=== PATIENT | female | born 1995 | race Caucasian/White ===

== ENCOUNTER → 2019-10-16 12:06 | Outpatient (CLI) | payer OTHER, SELFPAY ==
[2019-10-10 09:29] VITALS: BMI 28.0
--- NOTE | 2019-10-16 12:09 | US_ITS ---
STUDY: ULTRASOUND OF THE FEMALE PELVIS - COMPLETE REASON FOR EXAM: Female, 23 years old. RT PELVIC PAIN X 2 MONTHS -- IUD CHECK LMP: 10/07/2019 TECHNIQUE: Transabdominal and Transvaginal TECHNICAL QUALITY: Adequate. COMPARISON: None. FINDINGS: The uterus is anteverted and is in a midline position. The uterus measures 6.4 x 4.8 x 3.4 cm. Normal uterine cervix. The endometrium measures 3 mm in thickness, and is hyperechoic. There is no demonstrated endometrial mass. There is no demonstrated myometrial mass. I.U.D. - The patient does have an I.U.D. IUD noted in satisfactory position The right ovary is visualized. The right ovary measures 3.8 x 2.5 x 3.1 cm. There is a simple 1.6 cm right ovarian cyst. There is normal arterial and normal venous vascularity. The left ovary is visualized. The left ovary measures 2.4 x 3.1 x 1.3 cm. There is no left ovarian cyst or ovarian mass. There is no visualized left adnexal mass or complex lesion. There is normal arterial and normal venous vascularity. There is no fluid in the cul-de-sac. The bladder is sonographically normal US/Pelvic (Non ) IMPRESSION: Sonographically normal uterus, IUD noted in satisfactory position Simple right ovarian cyst, no specific follow-up needed No suspicious adnexal mass or free fluid Electronically Signed: Tesfaye Harrison MD at 13:27 EDT , Service support ,
--- NOTE | 2019-10-16 12:09 | US_ITS ---
STUDY: ULTRASOUND OF THE FEMALE PELVIS - COMPLETE REASON FOR EXAM: Female, 23 years old. RT PELVIC PAIN X 2 MONTHS -- IUD CHECK LMP: 10/07/2019 TECHNIQUE: Transabdominal and Transvaginal TECHNICAL QUALITY: Adequate. COMPARISON: None. FINDINGS: The uterus is anteverted and is in a midline position. The uterus measures 6.4 x 4.8 x 3.4 cm. Normal uterine cervix. The endometrium measures 3 mm in thickness, and is hyperechoic. There is no demonstrated endometrial mass. There is no demonstrated myometrial mass. I.U.D. - The patient does have an I.U.D. IUD noted in satisfactory position The right ovary is visualized. The right ovary measures 3.8 x 2.5 x 3.1 cm. There is a simple 1.6 cm right ovarian cyst. There is normal arterial and normal venous vascularity. The left ovary is visualized. The left ovary measures 2.4 x 3.1 x 1.3 cm. There is no left ovarian cyst or ovarian mass. There is no visualized left adnexal mass or complex lesion. There is normal arterial and normal venous vascularity. There is no fluid in the cul-de-sac. The bladder is sonographically normal US/Transvaginal Non- IMPRESSION: Sonographically normal uterus, IUD noted in satisfactory position Simple right ovarian cyst, no specific follow-up needed No suspicious adnexal mass or free fluid Electronically Signed: Tesfaye Harrison MD at 13:27 EDT , Service support ,
== END ==
PROVIDERS: Referring Provider Nurse Practitioner Women's Health; Visit Provider Nurse Practitioner Women's Health
DX: R10.2 Pelvic and perineal pain (principal); Z30.431 Encounter for routine checking of intrauterine contraceptive device
CPT/HCPCS: 76830; 76856; 93976

== ENCOUNTER → 2020-03-12 11:01 | Outpatient (CLI) | payer OTHER, SELFPAY ==
[2020-03-12 10:32] VITALS: BMI 29.3
[2020-03-12 12:17] LABS: HIV - WCH Non-Reactive (Nonreactive)
[2020-03-12 15:40] LABS: Chlamydia Trachomatis by PCR Negative (Negative); Neisserai gonorrhoeae by PCR Negative (Negative); Probe Check PASS; Sample Adequacy Control PASS; Specimen Processing Control PASS
[2020-03-13 20:08] LABS: HCV Quant. RNA PCR HCV Not Detected IU/mL (.)
[2020-03-13 20:45] LABS: HSV 2 IgG < 0.91 index (0.00-0.90)
[2020-03-15 04:48] LABS: HPV Reflexed? NOT INDICATED
[2020-03-19 02:21] LABS: Rapid Plasmin Reagin (RPR) NONREACTIVE (NONREACTIVE)
== END ==
PROVIDERS: Referring Provider Nurse Practitioner Women's Health; Visit Provider Nurse Practitioner Women's Health
DX: Z11.3 Encounter for screening for infections with a predominantly sexual mode of transmission (principal); Z12.4 Encounter for screening for malignant neoplasm of cervix
CPT/HCPCS: 36415; 86592; 86695; 86696; 86703; 87491; 87522; 87591; 88175; G0145

== ENCOUNTER 2020-03-23 20:58 | Emergency (ER) | payer OTHER, SELFPAY ==
[2020-03-12 10:32] VITALS: BMI 29.3
[2020-03-23 20:59] VITALS: BP 141/94; PULSE 111; RESP 15; TEMP 36.1; O2SAT 100; BMI 29.0
--- NOTE | 2020-03-23 21:20 | ED.VIS.GEN ---
History of Present Illness Chief Complaint: Nausea/Vomiting/Diarrhea Informant: Patient Narrative: 24-year-old female states that she needs to be checked out for possible food poisoning from eating fish prior to arrival.. She states her significant other is here for the same thing. Actually he is here an allergic reaction. She tells me that she vomited in her mouth on the way here and then had some diarrhea when she got here. She denies any hives fevers or prior reactions to eating fish. Past Medical History - Allergies and Home Meds Allergies/Adverse Reactions: Allergies No Known Allergies Allergy (Unverified 03/23/20 21:00) Primary Care Physician: Care Physician,No Primary [Primary Care Provider] - Past Medical History: - - Chronic bronchitis Surgical History: noncontributory Smoking Status: Current every day smoker Drugs: None Review of Systems General: Denies: Chills, Fever, Sweats Eyes: Denies: Visual changes - bilaterally, Diplopia ENT: Denies: Rhinorrhea, Sore throat Cardiovascular: Denies: Chest pain, Palpitations Respiratory: Denies: Dyspnea, Cough, Dyspnea on exertion Gastrointestinal: Reports: Nausea, Vomiting, Diarrhea. Denies: Abdominal pain, Melena, Hematochezia Genitourinary: Denies: Dysuria, Hematuria, Frequency Musculoskeletal: Denies: Back pain, Extremity Pain Skin: Denies: Rash, Wounds Neurological: Denies: Headache, Weakness, Numbness Physical Exam Vital Signs/Narrative: Vital Signs Temp Pulse Resp BP Pulse Ox 03/23/20 20:59 97 F L 111 H 15 141/94 H 100 Inital Vital Signs reviewed: Yes General: Well nourished, Well developed, No Acute Distress Head: Normocephalic, Atraumatic Eyes: Perrl, EOMI ENT: Moist mucous membranes, No rhinorrhea Neck: Supple, Nontender Cardiovascular: Regular rate, Regular rhythm, No murmurs Respiratory: No distress, CTA bilaterally, Chest nontender Abdomen: Soft, Nontender, Nondistended, Normal bowel sounds Back: Nontender, Normal Inspection Extremities: Nontender, No edema Skin: Normal color, No rash Neurological: Alert, Oriented x3, Cranial nerves II-XII grossly intact, Normal Strength, Normal Sensation Psychological: Normal affect, Normal Mood Diagnostic/Tx/Re-eval - Medical Decision Making Patient does not appear dehydrated nor would expect her to be dehydrated after finishing dinner and having one episode of vomiting and diarrhea. I will write for Zofran and give her some Imodium. Follow-up as needed encourage fluid hydration. ED Disposition - Plan for ED Patient: Disposition: Home or Assisted Living Diagnosis: Nausea vomiting and diarrhea Instructions: ED Vomiting and Diarrhea ... Prescriptions: Ondansetron [Zofran Odt] 4 mg PO Q6H PRN PRN #10 tab PRN Reason: Nausea Prescription Printed
[2020-03-23] MEDS: Loperamide 2 MG Capsule 4 MG PO (22:07)
[2020-03-23] MEDS: Ondansetron ODT 4 MG Tablet PO (22:07)
[2020-03-23 22:09] VITALS: BP 114/54; PULSE 84; RESP 18; O2SAT 99
== END 2020-03-23 22:11 | disposition home or self-care (01) ==
LOC: ED 21:43
PROVIDERS: Emergency Provider Emergency Medicine
DX: R11.2 Nausea with vomiting, unspecified (principal); R19.7 Diarrhea, unspecified; F17.200 Nicotine dependence, unspecified, uncomplicated
CPT/HCPCS: 99283

== ENCOUNTER 2022-03-04 15:19 | Emergency (ER) | payer OTHER, SELFPAY ==
[2022-03-04 15:22] VITALS: BP 120/74; PULSE 71; RESP 16; TEMP 36.9; O2SAT 100; BMI 30.4
--- NOTE | 2022-03-04 15:37 | ED.RN ---
THIS RN WAS GIVEN SUPERVISORS PHONE NUMBER FROM PT. THIS RN CONTACTED EVER LAILA AT [phone] AND INFORMED HIM OF PT PRESENCE IN ED BEING SEEN FOR WORK INJURY AND INQUIRING ABOUT WORKMAN'S COMP AND DRUG SCREENING PROCESS. PER EVER, BEST TO CONTACT THE CHAR FILTER OPERATOR ADRIEN GORDILLO AT [phone]. THIS RN THEN CALLED ADRIEN AND INFORMED HIM OF PT PRESENCE IN ED FOR WORK INJURY. PER ADRIEN PT SHOULD GO TO [facility] DISCHARGED TO BE SCREENED FOR WORKMANS COMP. ADRIEN REQUESTS I GIVE PT HIS PHONE NUMBER FOR HER TO CONTACT HIM DIRECTLY. THIS RN GIVES PT DEBRA PHONE NUMBER WITH INSTRUCTIONS TO CONTACT HIM.
--- NOTE | 2022-03-04 16:21 | ED.RN ---
AFTER THIS RN GOT OFF THE PHONE WITH ADRIEN GORDILLO, PT APPROACHES ED TRIAGE DESK AND REPORTS TO THIS RN THAT ADRIEN HAD CONTACTED HER AND REPORTED THAT SHE SHOULD GO BE SEEN AT [facility]. PT INFORMED THAT SHE IS ABLE TO BE EVALUATED IN ED IF SHE CHOOSES. PT REPORTS SHE WILL BE SEEN AT [facility] AND AMBULATES OUT OF ED WITH SIGNIFICANT OTHER. LWBS.
== END 2022-03-04 15:40 | disposition left against medical advice (07) ==
LOC: ED 16:29
DX: Z53.29 Procedure and treatment not carried out because of patient's decision for other reasons (principal)

== ENCOUNTER → 2022-03-07 | Outpatient (CLI) | payer OTHER, SELFPAY ==
--- NOTE | 2022-03-07 10:03 | CT_ITS ---
STUDY: CT BRAIN WITHOUT CONTRAST REASON FOR EXAM: Female, 26 years old. CONCUSSION/CONTUSION OF HEAD RADIATION DOSAGE (If Supplied By Facility): CTDIvol = ( 44.99 ) mGy, DLP = ( 779.24 ) mGycm TECHNIQUE: Transaxial CT imaging of the brain was performed without administration of intravenous contrast material. Individualized dose optimization techniques were used for this CT. COMPARISON: No relevant priors. FINDINGS: Normal soft tissue structures. Normal calvarium. Normal size ventricles and extra-axial spaces for the patient''s age. Normal white matter tracts of the cerebral hemispheres. Normal basal ganglia and thalami. Normal brainstem. Normal cerebellum. There is no intracranial hemorrhage. There are no findings of an acute ischemic infarction. Normal visualized paranasal sinuses. CT/Brain/Head without Contrast IMPRESSION: Normal unenhanced CT scan of the brain. Electronically Signed: Sammy Dukes MD at 11:00 EST ,
== END | disposition home or self-care (01) ==
PROVIDERS: Visit Provider Emergency Medicine
DX: S06.0X0A Concussion without loss of consciousness, initial encounter (principal); S00.93XA Contusion of unspecified part of head, initial encounter
CPT/HCPCS: 70450

== ENCOUNTER → 2022-07-20 | Outpatient (CLI) | payer BC, SELFPAY ==
[2022-07-27 17:19] LABS: HPV Reflexed? NOT INDICATED
== END | disposition home or self-care (01) ==
LOC: LABSPEC 12:05
PROVIDERS: Referring Provider Nurse Practitioner Women's Health; Visit Provider Nurse Practitioner Women's Health
DX: Z12.4 Encounter for screening for malignant neoplasm of cervix (principal)
CPT/HCPCS: 88175; G0145

== ENCOUNTER → 2023-04-17 | Outpatient (CLI) | payer BC, SELFPAY ==
--- OUTSIDE RECORDS SUMMARY | 2023-04-17 12:22 | XMS RPT_ITS | CCD ---
Author Name Unknown Address [address] [place] [address] Organization [facility] Results Test Name Value Interpretation Reference Range Facil ity Summary Purpose Family History No Family History Records Found Advance Directives No Advanced Directives Records Found Additional Source Comments INFORMATION SOURCE (unrecogn ized section and content) FOR RECORDS PERTAINING TO PATIENTS WHO ARE OR HAVE BEEN ENROLLED IN A CHEMICAL DEPENDENCY/SUBSTANCEABUSE PROGRAM, SOME INFORMATION MAY BE OMITTED. This clinical summary was aggregated from multiple sources. Caution should be exercised in using it in the provision of clinical care. This summary normalizes information from multiple sources, and as a consequence, information in this document may materially change the coding, format and clinical context of patient data. In addition, data may be omitted in some cases. CLINICAL DECISIONS SHOULD BE BASED ON THE PRIMARY CLINICAL RECORDS. [employer] provides no warranty or guarantee of the accuracy or completeness of information in this document.
[2023-04-17 12:29] LABS: Prolactin 8.3 ng/mL
== END | disposition home or self-care (01) ==
PROVIDERS: Visit Provider Nurse Practitioner Women's Health
DX: N64.3 Galactorrhea not associated with childbirth (principal)
CPT/HCPCS: 36415; 84146

== ENCOUNTER → 2023-07-18 | Outpatient (CLI) | payer BC, SELFPAY ==
[2023-07-21 07:08] LABS: Chlamydia By Nucleic Acid AMP Negative (Negative); Gonococcus By Nucleic Acid AMP Negative (Negative)
== END | disposition home or self-care (01) ==
LOC: LABSPEC 16:56
PROVIDERS: Referring Provider Advanced Practice Midwife; Visit Provider Advanced Practice Midwife
DX: Z11.3 Encounter for screening for infections with a predominantly sexual mode of transmission (principal)
CPT/HCPCS: 87491; 87591

== ENCOUNTER → 2024-04-23 | Outpatient (CLI) | payer BC, SELFPAY ==
[2024-04-29 13:16] LABS: HPV Reflexed? NOT INDICATED
== END | disposition home or self-care (01) ==
LOC: LABSPEC 11:42
PROVIDERS: Referring Provider Nurse Practitioner Women's Health; Visit Provider Nurse Practitioner Women's Health
DX: Z12.4 Encounter for screening for malignant neoplasm of cervix (principal); R87.612 Low grade squamous intraepithelial lesion on cytologic smear of cervix (LGSIL)
CPT/HCPCS: 88175; G0145